=== PATIENT | female | born 1960 | race Caucasian/White ===

== ENCOUNTER → 2024-12-16 12:40 | Outpatient (REF) | payer OTHER, SELFPAY | LOC: WDC 12:40 | PROVIDERS: ATTENDING PHYSICIAN Obstetrics & Gynecology Gynecology; FAMILY PHYSICIAN Family Medicine | DX: Z12.31 Encounter for screening mammogram for malignant neoplasm of breast (principal) | CPT/HCPCS: 77063; 77067 ==

== ENCOUNTER → 2025-01-26 10:17 | Outpatient (REF) | payer OTHER, SELFPAY | LOC: HWRAD 10:17 | PROVIDERS: ATTENDING PHYSICIAN Obstetrics & Gynecology Gynecology; FAMILY PHYSICIAN Family Medicine | DX: N95.0 Postmenopausal bleeding (principal) | CPT/HCPCS: 76830; 76856 ==

== ENCOUNTER 2025-03-06 01:11 | Inpatient (IN) | payer OTHER, SELFPAY ==
[2025-03-05] VITALS (11 sets, daily range): BP systolic 119–160; BP diastolic 79–129
[2025-03-05] MEDS: CARDIZEM 20 MG IV (22:03)
--- NOTE | 2025-03-05 22:12 | ED.GENMED ---
History of Present Illness
General
Chief Complaint: Heart Rate Problem
Source: patient
Exam Limitations: none
Time Seen by Provider: 03/05/25 22:11
History of Present Illness
History of Present Illness:
64-year-old female presents with sudden onset rapid heart rate and jaw discomfort starting at 830 tonight. The jaw discomfort has resolved but she still notes a racing heart. She denies chest pain. She denies shortness of breath. No prior
history of similar symptoms. She is not anticoagulated. She denies leg swelling or calf pain. No recent alcohol or excessive caffeine use. No other complaints
Phy Exam
Physical Exam
Physical Exam:
General: Well-appearing female no acute respiratory distress
HEENT: Normocephalic atraumatic
Heart: Tachycardic and irregular
Lungs: Clear no wheeze
Extremities: No cyanosis or edema
Course
Orders/Labs/Results
Orders:
Orders
03/05/25 21:45
Electrocardiogram (*1) Urgent
Reason for Study: Other
Other Reason for Exam: Respiratory Distress
Cardiac Monitoring- Treatment ONCE
EKG- Treatment ONCE
IV Insert/Care/Rem.- Treatment PRN
O2 Therapy [RESP] Urgent
Titrate/Wean O2 to maintain O2 sat greater than (%): 93
Special Instructions: TO MAINTAIN CONTINUOUS O2 SATS >/= 93%
Pulse Ox/cont/shift [RESP] Urgent
Quantity: 1
Special Instructions: continuous pulse ox
03/05/25 21:54
Adenosine [Adenocard] 12 mg .ROUTE .STK-MED ONE
03/05/25 22:02
Diltiazem HCl [Cardizem] 20 mg IV NOW STA
Diltiazem HCl [Cardizem] 25 mg .ROUTE .STK-MED ONE
03/05/25 22:09
Electrocardiogram (*1) Urgent
Reason for Study: Palpitations
EKG- Treatment ONCE
03/05/25 22:10
Complete Blood Count/With Diff Urgent
Comprehensive Metabolic Panel Urgent
03/05/25 22:31
Diltiazem 125 mg/125 ml Nss [Cardizem] 125 mg in 125 ml .ROUTE .STK-MED
03/05/25 22:42
Portable Chest Xray [CR Chest Portable - 1 View] Urgent
Comment:
Reason For Exam: afib
Reason Study Needs to be Portable: Patient Unstable
03/05/25 22:45
Diltiazem 125 mg/125 ml Nss [Cardizem] 125 mg in 125 ml IV PER PROTOCOL
Initial dose in mg/hr, then titrate:: 10
Titrate to keep:: Heart rate 80-100 bpm
Titrate by mg/hr:: 5 mg/hr
Frequency of titrations (minutes):: 15
Maximum dose in mg/hr:: 15
03/06/25 00:19
Apixaban [Eliquis] 5 mg PO NOW STA
Abnormal Lab Results
03/05/25
22:10
WBC 12.2 H 10^3/uL
(4.8-10.8)
Abs Immat Gran (auto) 0.1 H 10^3/uL
(0-0.05)
Absolute Monos (auto) 0.7 H 10^3/uL
(0.1-0.6)
Absolute Eos (auto) 1.6 H 10^3/uL
(0-0.7)
Eosinophils % 13.4 H %
(0-6)
Chloride 109 H mmol/L
(98-107)
Glucose 153 H mg/dl
(70-99)
03/05/25 22:10
03/05/25 22:10
Vital Signs
Initial and Last Documented VS:
Initial Vital Signs
Temp Pulse Resp BP Pulse Ox
98.2 F 70 20 160/98 98
03/05/25 21:45 03/05/25 21:45 03/05/25 21:45 03/05/25 21:45 03/05/25 21:45
Last Documented Vital Signs
Temp Pulse Resp BP Pulse Ox
98.2 F 162 21 119/79 94
03/05/25 21:45 03/05/25 23:05 03/05/25 22:30 03/05/25 22:45 03/05/25 23:05
MDM/Problems Addressed
Differential Diagnosis Includes:
Symptom onset about an hour and 1/2 to 2 hours prior to arrival. Blood pressure stable. Heart rate was tachycardic and irregular ranging in the 180s. I suspected A-fib. Cardizem given 20 mg bolus which did slow her down into the 120s repeat EKG
pending. Labs pending.
*Critical Care Note
Total Time (30-74mins, 75-104mins- exclusive of procedures): Not Applicable
Update Note
Update Note:
Patient given 20 mg bolus of Cardizem subsequently started on Cardizem infusion. Blood pressure remained stable. Heart rate remains elevated. Eliquis ordered. Given persistent rapid heart rate and new onset A-fib will admit to hospital
ED Attending Note
-
Portions of this chart may have been created with voice recognition software.� Occasional wrong word or��sound alike� substitutions may have occurred due to the inherent limitations of voice recognition software.
Discharge Plan
Departure
Patient Disposition: Admit
Date of Disposition: 03/06/25
Time of Disposition: 00:21
Presentation/result/management discussed w/ accepting MD/DO: Hospitalist
Discharge Problem:
Atrial fibrillation with rapid ventricular response
Prescriptions:
No Action
levothyroxine [Levoxyl] 100 mcg Tablet
100 mcg PO DAILY
Referrals:
Unique Monet DO [Family Provider] -
Interventions
Interventions:
*Risk Screen - Suicide Last Done: 03/05/25 21:47
*General Assessment Last Done: 03/05/25 21:47
*Neglect/Abuse Screening Last Done: 03/05/25 21:47
*ED- Fall Risk Assessment Last Done: 03/05/25 21:47
ED- Cardiac Assessment Last Done: 03/05/25 22:14
ED- Pulmonary Assessment Last Done: 03/05/25 22:14
Discharge Date and Time
Print Language: SLOVAK
[2025-03-05 22:18] LABS: % Basophils 0.7 % (0-2); % Eosinophils 13.4 % (0-6); % Immature Granulocytes 0.4 % (0-0.5); % Lymphocytes 27.6 % (20.5-51.1); % Neutrophils 51.9 % (42.2-75.2); Absolute Basophils 0.1 10^3/uL (0-0.2); Absolute Eosinophils 1.6 10^3/uL (0-0.7); Absolute Immature Granulocytes 0.1 10^3/uL (0-0.05); Absolute Lymphocytes 3.4 10^3/uL (1.2-3.4); Absolute Monocytes 0.7 10^3/uL (0.1-0.6); Absolute Neutrophils 6.4 10^3/uL (1.4-6.5); Hematocrit 42.8 % (37.0-47.0); Hemoglobin 14.9 g/dL (12.0-16.0); Mean Corp Hgb Conc. 34.8 g/dL (33.0-37.0); Mean Corpuscular Hgb 30.7 pg (27.0-31.0); Mean Corpuscular Volume 88.1 fL (81.0-99.0); Mean Platelet Volume 10.2 fL (7.4-10.4); Nucleated Red Blood Cells % 0.2 %; Platelet Count 245 10^3/uL (130-400); Red Blood Cell Count 4.86 10^6/uL (4.20-5.40); Red Cell Dist. Width 13.7 % (11.5-14.5); White Blood Cell Count 12.2 10^3/uL (4.8-10.8)
[2025-03-05 22:33] LABS: ALT (SGPT) 22 U/L (0-35); AST (SGOT) 26 U/L (14-36); Albumin 4.6 g/dl (3.5-5.0); Alkaline Phosphatase 98 U/L (38-126); Blood Urea Nitrogen 13 mg/dl (7-17); Calcium 9.3 mg/dl (8.4-10.2); Carbon Dioxide 24 mmol/L (22-30); Chloride 109 mmol/L (98-107); Glucose 153 mg/dl (70-99); Potassium 3.8 mmol/L (3.5-5.1); Sodium 142 mmol/L (135-145); Total Bilirubin 1.2 mg/dl (0.2-1.3); Total Protein 6.9 g/dl (6.3-8.2); eGFR > 60.00
[2025-03-05] MEDS: CARDIZEM 125 IV (22:40)
[2025-03-06] VITALS (12 sets, daily range): BP systolic 104–134; BP diastolic 61–88; BMI 31.3
--- NOTE | 2025-03-06 00:47 | HPS.HSE ---
Family Physician
-
Family Physician: Unique Monet
Chief Complaint
-
Palpitations
History of Present Illness
Patient is a 64y F with PMH significant for hypothyroidism who presents to ED complaining of palpitations and jaw pain. Patient states that she was feeling very well today. Around 8:30 PM, she developed severe bilateral jaw pain followed by
sensation of racing / pounding heart beat. She checked her pulse at home and noted that it was very high. She lie down for a time with no improvement in her symptoms and then presented to the ED for further evaluation.
Patient denies any prior history of similar symptoms. She denies any associated chest pain / pressure, diaphoresis, nausea, dyspnea, etc.
In the ED, patient was noted to be in A-Fib with rapid ventricular response. She was started on IV diltiazem with minimal improvement in her tachycardia.
She states that the palpitations and jaw pain have resolved since arrival.
Patient reports prior history of brief 'flutters' which she attributed to her T4 supplementation. No formal diagnosis of A-Fib and no prior symptoms of this severity / duration.
Medical History
Past Medical History
Past Medical History: Reports Other
Additional Past Medical History:
Hypothyroidism
Past Surgical History: Reports None
Social History
Tobacco: Non-smoker
Alcohol: Occasional (Rarely.)
Drug: None
Family History
Family History: Other (Father: DM Mother: CAD)
Allergies / Home Medications
Allergies reflects when Allergies were last updated in [facility].
Home Medications with original date entered in [facility]
Allergy/Medication List:
Allergies
Allergy/AdvReac Type Severity Reaction Status Date / Time
No Known Allergies Allergy Unverified 03/05/25 21:52
Home Medications
levothyroxine 100 mcg tablet (Levoxyl) 100 mcg PO DAILY 03/05/25
Review of Systems
-
History Source: Patient
A 12 point ROS was completed and negative except as noted: Yes
Constitutional: Denies Fever or Chills
EENT: Reports Other (Bilateral jaw pain.); Denies Sore Throat
Respiratory: Denies Cough or Trouble Breathing
Cardiac: Reports Palpitations; Denies Chest Pain, Diaphoresis or Syncope
Abdomen/GI: Denies Abdominal Pain, Nausea, Vomiting or Diarrhea
: Denies Dysuria or Frequency
Musculoskeletal: Denies Joint Pain or Edema
Neurological: Denies Dizzy or Headache
Psych: Denies Depression or Anxiety
Physical Exam
Vital Signs
Vital Signs
Temp Pulse Resp BP Pulse Ox
98.2 F 162 21 119/79 94
03/05/25 21:45 03/05/25 23:05 03/05/25 22:30 03/05/25 22:45 03/05/25 23:05
Physical Exam
General: Other (64y F in no acute distress.)
HEENT: Moist mucous membranes and PERRLA
Respiratory: Clear; No Wheezes, Rales or Rhonchi
Cardiac: S1/S2, Irregular Rhythm and Tachycardia; No Murmur
GI: Soft, Non Tender, Non Distended and Normal Bowel Sounds
Musculoskeletal: No Clubbing, No Cyanosis and No Edema
Neuro: AO x 3
Laboratory Results
-
03/05/25 22:10
03/05/25 22:10
Laboratory Results
Total Bilirubin 1.2 mg/dl (0.2-1.3) 03/05/25 22:10
AST 26 U/L (14-36) 03/05/25 22:10
ALT 22 U/L (0-35) 03/05/25 22:10
Alkaline Phosphatase 98 U/L (38-126) 03/05/25 22:10
Troponin I Cancelled 03/05/25 21:45
Impression/Plan
-
A/P: Patient is an 64y F with PMH significant for hypothyroidism who presents to ED complaining of jaw pain and palpitations that started this evening.
Atrial Fibrillation with Rapid Ventricular Response - New Onset
- Admit for further evaluation and treatment.
- Continue IV diltiazem and titrate as needed for improved rate control.
- Continue Eliquis (first dose given in the ED) for stroke risk reduction.
- Cardiology evaluation for additional recommendations.
- Check Echo.
Jaw Pain
- Concerning for anginal equivalent with rapid A-Fib, jaw pain, etc.
- Check troponin now and follow serially.
- Currently pain free.
- Check lipids, A1C, etc.
- Cardiology evaluation as noted above.
Hypothyroidism
- Continue current T4 replacement.
- Check TFTs.
DVT Prophylaxis: Eliquis
Code Status: Full
[2025-03-06] MEDS: ELIQUIS 5 MG PO ×2 (00:57→08:31)
[2025-03-06 01:46] LABS: Troponin I < 0.012 ng/ml
--- NOTE | 2025-03-06 02:13 | PTCARENOTE ---
Received pt from ED via stretcher. Pt able to ambulate to bed with minimal assistance. Cardizem gtt running at 15 mg/hr. Pt on RA; no SOB. Pt offers no complaints at this time. Pt converted to NSR on transfer. EKG performed for change in
rhythm. [employer] notified. Resting in bed with call reese in reach.
--- NOTE | 2025-03-06 02:42 | PTCARENOTE ---
Pt refusing morning dose of Synthroid. States she is ONLY able to take the brand name Levoxyl. Hospital does not carry this brand. Advised pt to have spouse bring in her own meds.
[2025-03-06 06:34] LABS: Hematocrit 39.6 % (37.0-47.0); Hemoglobin 13.7 g/dL (12.0-16.0); Mean Corp Hgb Conc. 34.6 g/dL (33.0-37.0); Mean Corpuscular Hgb 30.5 pg (27.0-31.0); Mean Corpuscular Volume 88.2 fL (81.0-99.0); Mean Platelet Volume 10.2 fL (7.4-10.4); Platelet Count 240 10^3/uL (130-400); Red Blood Cell Count 4.49 10^6/uL (4.20-5.40); Red Cell Dist. Width 13.8 % (11.5-14.5); White Blood Cell Count 8.8 10^3/uL (4.8-10.8)
[2025-03-06 07:04] LABS: Blood Urea Nitrogen 13 mg/dl (7-17); Calcium 9.3 mg/dl (8.4-10.2); Carbon Dioxide 25 mmol/L (22-30); Chloride 113 mmol/L (98-107); Estimated Creatinine Clearance 122 ml/min; Glucose 112 mg/dl (70-99); HDL Cholesterol 51 mg/dl; LDL Cholesterol, Calculated 163 mg/dl; Potassium 4.4 mmol/L (3.5-5.1); Sodium 144 mmol/L (135-145); Total Cholesterol 231 mg/dl (50-199); Triglyceride 88 mg/dl (10-149); Very Low Density Lipoprotein 17 mg/dl (0-30); eGFR > 60.00
[2025-03-06 07:15] LABS: Troponin I < 0.012 ng/ml
[2025-03-06] MEDS: LOW STRENGTH ASPIRIN 81 MG PO (08:31)
--- NOTE | 2025-03-06 09:11 | CON.CAR ---
Addendum entered and electronically signed by Jose D Boudreaux MD 03/06/25 14:12:
I saw and examined the patient.
The STARS COORDINATOR's note was reviewed and I agree with the note.
Comment: I reviewed AFib risk factor modification, afib treatment approaches beyond risk factor modification including med rx (simple rate control and AAD) and ablation. Stroke risk is low [id number] is 1 for gender. No anticoagulation. Plan echo
and stress as outpatient. She has seen Dr. Potter in 2015 and may see him or me in followup.
Original Note:
Consultation
Consultation Request
Date/Time Consultation Requested: 03/06/2025 01:45
Date/Time Consultation Performed: 03/06/2025 09:10
Requesting Provider: Dr. Nagel
Performing Provider: DANIEL Fan for Dr. Boudreaux
Reason for Consultation: Atrial fibrillation with rapid ventricular response
Medical History
-
Chief Complaint: Elevated heart rate, jaw discomfort
History of Present Illness:
Tracey Neal is a 64-year-old female with hypothyroidism who presented to the emergency department last evening with a chief complaint of sudden onset of rapid heart rate. It started at approximately 8:30 PM. She then had associated jaw
discomfort. It lasted 10 minutes. She took ibuprofen. Her continued elevated heart rate persisted. She had no chest pain. She had no shortness of breath nor diaphoresis. She came to the emergency department and was found to be in atrial
fibrillation with rapid ventricular response. Her heart rate was approximately 180 bpm in the ER. She was given a diltiazem bolus of 20 mg which slowed her heart rate down to approximately 120 bpm. She did not have any acute findings on her labs.
Cardiology was consulted for atrial fibrillation management. She is back in sinus rhythm.
Past Medical History
Past Medical History: Hypothyroidism
Social History
Tobacco: Non-Smoker
Alcohol: None
Drug: None
Personal:
Family History
Family History: Reviewed & Not Pertinent
Allergies / Home Medications
Allergy/AdvReac Type Severity Reaction Status Date / Time
No Known Allergies Allergy Unverified 03/05/25 21:52
�Medication �Instructions �Recorded �Confirmed �Type
levothyroxine 100 mcg tablet 100 mcg PO DAILY 03/05/25 03/05/25 History
(Levoxyl)
Review of Systems
-
History Source: Patient
All other systems: Negative unless noted
Constitutional: No Symptoms
EENT: No Symptoms
Respiratory: No Symptoms
Cardiac: No Symptoms
Abdomen/GI: No Symptoms
: No Symptoms
Musculoskeletal: No Symptoms
Skin: No Symptoms
Neurological: No Symptoms
Endocrine: No Symptoms
Hematologic/Lymphatic: No Symptoms
Physical Exam
Vital Signs
Temp Pulse Resp BP Pulse Ox
98.1 F 79 11 104/88 94
03/06/25 07:25 03/06/25 03:00 03/06/25 03:00 03/06/25 02:00 03/06/25 03:00
Lab Results
03/06/25 06:15
03/06/25 06:15
Troponin I < 0.012 ng/ml 03/06/25 06:15
Tmd-M-Krsqynxputg Pept Cancelled 03/05/25 21:45
Physical Exam
General: Well Developed, Well Nourished, No Apparent Distress and Comfortable
HEENT: Normocephalic, Anicteric and Moist Mucous Membranes
Respiratory: Clear
Cardiac: S1/S2 and Regular Rhythm
Breast: Deferred by me
GI: Soft, Non Tender, Non Distended and Normal Bowel Sounds
Rectal: Deferred by Provider
Genito-urinary: No Costovertebral Tender
Musculoskeletal: No Clubbing, No Cyanosis and No Edema
Skin: Warm and Dry
Neuro: AO x 3
Hematologic/Lymphatic: No Lymphadenopathy
Psych: Calm
Impression / Plan
-
I/P: 64F with hypothyroidism presented in atrial fibrillation with Ventricular response. She had associated jaw pain.
Atrial fibrillation with rapid ventricular response
- Rate: Back in sinus
- Oral Anticoagulation: None prior to arrival
- [id number]: Score of 1 (female gender)
Jaw pain
- Lasted 10 minutes and resolved with ibuprofen
- EKG stable
- Troponin <0.012 x 2
PVCs
-On triplet, start metoprolol succinate
Hyperlipidemia
- TC 231, LDL 163, HDL 51, TG 88
- She was happy with her lipid panel as it has improved
- ASCVD 10-year risk of 3.4% using this morning's blood pressure
Hypothyroidism
- TSH stable on current dose levothyroxine
Postmenopausal bleeding, she has a D&C for a polyp planned 04/23/[address] Reeder
Data Reviewed
-
EKG: Report Reviewed by me
Labs: Labs Reviewed by me
Old Records: Reviewed
--- NOTE | 2025-03-06 10:01 | W.PN.HOSP.TC ---
Addendum entered and electronically signed by Nestor Danielle MD 03/06/25 12:59:
Medically cleared for discharge as per discussion with Dr. Boudreaux.
Total time spent on d/c = 31 min. This included today's physical exam, progress note, review of laboratory and diagnostic data, preparation of discharge documents and prescriptions, and discussions about the pt's hospital course and discharge plan
with the patient and other medical care administrator involved in the patient's care.
Original Note:
Today's Communication/Plan
-
likely d/c later today
Assessment / Plan
Assessment / Plan
64y F with PMH significant for hypothyroidism who presents to ED complaining of jaw pain and palpitations that started this evening.
Denies CP/SOB.
Gen: NAD, AAOx3.
Eyes: EOMI, PERRLA, no scleral icterus.
Neck: supple.
CV: RRR, +S1/S2, no m/r/g.
Resp: CTAB, no rales, wheezes, or rhonchi.
Abd: +BS, soft, NT, ND
Skin: No rashes.
Neuro: CN 2-12 intact, non-focal.
Psych: Normal mood and affect.
Atrial Fibrillation with Rapid Ventricular Response:
-with jaw pain
-trop NEG x 2
-was on cardizem gtt, converted to SR, cardizem gtt stopped at 0400
-seen by cards AP who will discuss the case with Dr. Boudreaux
-cont Eliquis
Other problems:
Hypothyroidism: cont Levoxyl
Obesity due to excess calories
FULL/Eliquis
Anticipated Discharge: Within 24 hours
Subjective/Interval History
-
Date of Service: March 06, 2025
Objective Data
-
Labs:
Laboratory Results
03/05/25 03/06/25
22:10 06:15
WBC 12.2 H 8.8
Hgb 14.9 13.7
Hct 42.8 39.6
Plt Count 245 240
Sodium 142 144
Potassium 3.8 4.4
Chloride 109 H 113 H
Carbon Dioxide 24 25
BUN 13 13
Creatinine 0.7 0.6
Glucose 153 H 112 H
Calcium 9.3 9.3
Total Bilirubin 1.2
AST 26
ALT 22
Alkaline Phosphatase 98
Vital Signs:
Vital Signs
Temp Pulse Resp BP Pulse Ox
98.1 F 79 11 104/88 94
03/06/25 07:25 03/06/25 03:00 03/06/25 03:00 03/06/25 02:00 03/06/25 03:00
--- NOTE | 2025-03-06 10:30 | CM ---
Patient seen at bedside
IA completed
Dx: Afib with RVR
Lives in multistory home with , no steps to enter, flight to bed/bath, powder room 1st floor
PLOF: Independent, no device
Denies DME
Denies VN/Rehab
PCP: Unique Monet
Pharmacy: [facility] [address] , [place]
PLAN: home, no needs
to transport
[2025-03-06 10:35] LABS: Glycohemoglobin (HgbA1c) 5.4 % (4.0-5.6)
--- NOTE | 2025-03-06 10:35 | PTCARENOTE ---
Patient denies any issues this morning. VSS. NSR on monitor. Patient making needs known. Will closely monitor.
--- NOTE | 2025-03-06 13:12 | W.DCSUMMARY ---
Discharge Summary
Discharge Data
Date of Admission: 03/06/25
Date of Discharge: 03/06/25
-
Pending Results: No
Hospital Course
Primary diagnoses:
Atrial fibrillation with rapid ventricular response
Secondary diagnoses:
Hypothyroidism
Obesity due to excess calories
Consultants:
Cardiology
Imaging:
CXR: No acute cardiopulmonary process.
Hospital course: 64-year-old female who was admitted earlier today with atrial fibrillation with rapid ventricular response as outlined in the H&P done on admission. She was placed on a Cardizem drip and converted to sinus rhythm at around 4 AM
today. Troponins were negative x 2. Patient was seen by Dr. Boudreaux of cardiology who medically cleared the patient for discharge. He did not recommend anticoagulation. Patient was started on Toprol-XL 25 mg daily.
Discharge Plan
-
Patient Disposition: Home (Routine Discharge)
Discharge Diagnosis/Procedures: Atrial fibrillation with rapid ventricular response
Condition: Good
Diet: Low Cholesterol
Activity: As tolerated
Driving Restrictions: As prior to admission
Others Tests: Echocardiogram and stress echocardiogram. The cardiology office will call you to arrange this.
Instructions: Atrial fibrillation - Discharge instructions
Referrals:
Unique Monet DO [Family Provider] - in less than 1 week
Perla Larose CRNP [[employer] Professional [employer]] - (The front services agent will arrange an office visit. They will be calling you on Saturday.)
Prescriptions:
New
metoprolol succinate 25 mg Tablet Extended Release 24 Hr
25 mg PO QPM Qty: 30 0RF
Continued
levothyroxine [Levoxyl] 100 mcg Tablet
100 mcg PO DAILY
Discharge Orders:
Discharge Patient (As Directed); Ordered 03/06/25
Ordered By: Nestor Danielle
Discharge Date and Time
Print Language: PORTUGUESE
--- NOTE | 2025-03-06 13:53 | PTCARENOTE ---
Patient discharged with . DC VSS. IV and tele removed. DC packet discussed in detail. All questions answered. Instructed on checking BP and HR at home. Educational packet on afib and metoprolol given to patient.
== END 2025-03-06 13:51 | disposition home or self-care (01) | DRG 310 ==
LOC: IMU 01:11
PROVIDERS: ADMITTING PHYSICIAN Hospitalist; ATTENDING PHYSICIAN Internal Medicine; CONSULT PHYSICIAN Internal Medicine Cardiovascular Disease; EMERGENCY PHYSICIAN Emergency Medicine; FAMILY PHYSICIAN Family Medicine
DX: I48.91 Unspecified atrial fibrillation (principal); E66.09 Other obesity due to excess calories; Z68.31 Body mass index [BMI] 31.0-31.9, adult; E03.9 Hypothyroidism, unspecified; Z79.890 Hormone replacement therapy; Z82.49 Family history of ischemic heart disease and other diseases of the circulatory system; Z83.3 Family history of diabetes mellitus; Z79.01 Long term (current) use of anticoagulants; Z79.899 Other long term (current) drug therapy
CPT/HCPCS: 71045; 80048; 80053; 80061; 83036; 83735; 84443; 84484; 85025; 85027; 93005; 94760; 96365; 96366; 99285; J0153

== ENCOUNTER → 2025-03-16 13:43 | Outpatient (REF) | payer OTHER, SELFPAY | LOC: RCS 13:43 | PROVIDERS: ATTENDING PHYSICIAN Nurse Practitioner Gerontology; FAMILY PHYSICIAN Family Medicine | DX: I48.91 Unspecified atrial fibrillation (principal); R68.84 Jaw pain | CPT/HCPCS: 93306 ==

== ENCOUNTER → 2025-03-22 14:01 | Outpatient (REF) | payer OTHER, SELFPAY | LOC: RCS 14:01 | PROVIDERS: ATTENDING PHYSICIAN Nurse Practitioner Gerontology | DX: I48.91 Unspecified atrial fibrillation (principal); R68.84 Jaw pain | CPT/HCPCS: 93017 ==

== ENCOUNTER 2025-04-16 06:11 | Day surgery (SDC) | payer OTHER, SELFPAY ==
[2025-04-16] VITALS (11 sets, daily range): BP systolic 87–139; BP diastolic 53–84; BMI 29.0
[2025-04-16] MEDS: EMEND 40 MG PO (12:00)
== END 2025-04-16 15:45 | disposition home or self-care (01) ==
LOC: SDS 06:11
PROVIDERS: ATTENDING PHYSICIAN Obstetrics & Gynecology Gynecology
DX: N95.0 Postmenopausal bleeding (principal); N84.0 Polyp of corpus uteri; D26.1 Other benign neoplasm of corpus uteri
CPT/HCPCS: 58558; 88305